=== PATIENT | female | born 1965 | race African-American/Black ===

== ENCOUNTER 2019-11-29 15:16 | Inpatient (IN) ==
[2019-11-29] MEDS ORDERED: ONDANSETRON 4 MG/2 ML VIAL IV STA (15:49)
[2019-11-29] MEDS ORDERED: SODIUM CHLORIDE 0.9% 1,000 ML IV STA (15:49)
[2019-11-29 16:46] LABS: Hematocrit 43.4 VOL% (35.7-47.0); Hemoglobin 14.3 GM/DL (12.0-16.0); Immature Granulocytes % 0.9 %; Immature Granulocytes Absolute 0.04 #; Lymphocytes # 0.8 10*3/uL (1.4-4.0); Lymphocytes % 16.4 % (21.3-54.2); Mean Corpuscular HGB Conc 32.9 GM/DL (32-36); Mean Corpuscular Volume 81.9 FL (87-102); Mean Platelet Volume 11.4 FL (9.6-12.0); Neutrophils % 77.7 % (38.7-73.9); Platelet Count 186 T/CUMM (130-400); Red Cell Distribution Width 12.6 % (9.3-17.3); White Blood Count 4.6 T/CUMM (4-12)
[2019-11-29 17:07] LABS: Albumin 3.5 G/DL (3.4-5.0); Bilirubin,Total 0.4 MG/DL (0.2-1.0); Calcium 8.7 MG/DL (8.5-10.1); Osmolality,Calculated 274.8 MOS/KG (273-304); Total Protein 7.9 G/DL (6.4-8.3)
[2019-11-29 17:39] LABS: Ferritin 256.5 ng/ml (8-252)
[2019-11-29] MEDS ORDERED: DEXTROSE 10% 250 ML BAG IV PRN (19:05)
[2019-11-29] MEDS ORDERED: ONDANSETRON 4 MG/2 ML VIAL IV PRN (19:05)
[2019-11-29] MEDS ORDERED: ZALEPLON 5 MG CAPSULE PO PRN (19:05)
[2019-11-29] MEDS ORDERED: GLUCAGON 1 MG VIAL IM PRN (19:05)
[2019-11-29] MEDS ORDERED: AZITHROMYCIN 250 MG TABLET PO ONE (19:11)
[2019-11-29] MEDS: SODIUM CHLORIDE 0.9% 1,000 ML IV SCH (21:40)
[2019-11-29] MEDS: INSULIN REGULAR 100 UNIT/ML SUBCUT SCH (21:51)
[2019-11-29] MEDS: FAMOTIDINE 20 MG TABLET PO SCH (21:55)
[2019-11-29] MEDS: ZINC SULFATE 220 MG CAPSULE PO SCH (21:55)
[2019-11-29] MEDS: ACETAMINOPHEN 325 MG TABLET PO PRN (22:05)
[2019-11-29] MEDS: GABAPENTIN 300 MG CAPSULE PO SCH (22:40)
[2019-11-29] MEDS: AMITRIPTYLINE 25 MG TABLET PO SCH (22:40)
[2019-11-29] MEDS: ENOXAPARIN 40 MG/0.4 ML SYRINGE SUBCUT SCH (22:40)
[2019-11-30 05:21] LABS: Basophils % 0.3 % (0.0-0.8); Hemoglobin 12.7 GM/DL (12.0-16.0); Immature Granulocytes % 1.1 %; Immature Granulocytes Absolute 0.04 #; Lymphocytes # 0.9 10*3/uL (1.4-4.0); Lymphocytes % 25.3 % (21.3-54.2); Mean Corpuscular HGB Conc 33.4 GM/DL (32-36); Mean Corpuscular Volume 81.7 FL (87-102); Mean Platelet Volume 11.8 FL (9.6-12.0); Monocytes % 7.1 % (1.7-12.7); Neutrophils % 66.2 % (38.7-73.9); Platelet Count 171 T/CUMM (130-400); Red Blood Count 4.65 MC/CUMM (3.8-5.5); Red Cell Distribution Width 12.6 % (9.3-17.3); White Blood Count 3.7 T/CUMM (4-12)
[2019-11-30 05:40] LABS: Albumin 2.8 G/DL (3.4-5.0); Bilirubin,Total 0.5 MG/DL (0.2-1.0); Osmolality,Calculated 276.7 MOS/KG (273-304); Total Protein 6.5 G/DL (6.4-8.3)
[2019-11-30 06:03] LABS: Apearance,Urine CLEAR (Clear); Bilirubin,Urine Negative (Negative); Blood, Urine Negative (Negative); Glucose,Urine (UA) Negative (Negative); Ketones,Urine Negative (Negative); Nitrite,Urine Negative (Negative); Protein,Urine Negative; RBC,Urine <1 /HPF (0-4); Squamous Epithelial Cell,Urine Occasional /HPF (0-10); Urine Color Yellow (Yellow); Urine Specific Gravity 1.009 (1.001-1.035); Urine Urobilinogen < 2.0 EU/DL (0.2-1.0)
[2019-11-30] MEDS ORDERED: POTASSIUM CHLORIDE 20 MEQ TABLET PO PRN (07:08)
[2019-11-30] MEDS: INSULIN REGULAR 100 UNIT/ML SUBCUT SCH ×4 (08:57→20:00)
[2019-11-30] MEDS ORDERED: PANTOPRAZOLE 40 MG TABLET PO SCH (09:00)
[2019-11-30] MEDS: ACETAMINOPHEN 325 MG TABLET PO PRN ×2 (10:20→20:00)
[2019-11-30] MEDS: GABAPENTIN 300 MG CAPSULE PO SCH ×2 (10:20→20:00)
[2019-11-30] MEDS: FAMOTIDINE 20 MG TABLET PO SCH ×2 (10:20→20:00)
[2019-11-30] MEDS: AZITHROMYCIN 250 MG TABLET PO SCH (10:21)
[2019-11-30] MEDS: SODIUM CHLORIDE 0.9% 1,000 ML IV SCH (10:21)
[2019-11-30] MEDS: HYDROXYCHLOROQUINE 200 MG TABLET PO SCH ×4 (10:22→20:00)
[2019-11-30] MEDS ORDERED: POTASSIUM CHLORIDE 20 MEQ TABLET PO ONE (15:00)
[2019-11-30] MEDS: AMITRIPTYLINE 25 MG TABLET PO SCH (20:00)
[2019-11-30] MEDS: ENOXAPARIN 40 MG/0.4 ML SYRINGE SUBCUT SCH (20:00)
[2019-11-30] MEDS ORDERED: HYDROXYCHLOROQUINE 200 MG TABLET PO SCH (21:00)
[2019-12-01] MEDS: SODIUM CHLORIDE 0.9% 1,000 ML IV SCH ×2 (00:03→13:55)
[2019-12-01 08:35] LABS: Basophils % 0.2 % (0.0-0.8); Hematocrit 37.3 VOL% (35.7-47.0); Hemoglobin 11.9 GM/DL (12.0-16.0); Immature Granulocytes % 2.4 %; Immature Granulocytes Absolute 0.11 #; Lymphocytes # 0.9 10*3/uL (1.4-4.0); Lymphocytes % 19.1 % (21.3-54.2); Mean Corpuscular HGB Conc 31.9 GM/DL (32-36); Mean Corpuscular Volume 84.2 FL (87-102); Mean Platelet Volume 10.6 FL (9.6-12.0); Monocytes % 6.1 % (1.7-12.7); Neutrophils % 72.2 % (38.7-73.9); Platelet Count 192 T/CUMM (130-400); Red Blood Count 4.43 MC/CUMM (3.8-5.5); Red Cell Distribution Width 12.8 % (9.3-17.3); White Blood Count 4.6 T/CUMM (4-12)
[2019-12-01 08:53] LABS: Calcium 7.6 MG/DL (8.5-10.1); Osmolality,Calculated 277.1 MOS/KG (273-304)
[2019-12-01] MEDS: HYDROXYCHLOROQUINE 200 MG TABLET PO SCH ×2 (09:48→21:21)
[2019-12-01] MEDS: ZINC SULFATE 220 MG CAPSULE PO SCH (09:48)
[2019-12-01] MEDS: FAMOTIDINE 20 MG TABLET PO SCH ×2 (09:48→21:21)
[2019-12-01] MEDS: AZITHROMYCIN 250 MG TABLET PO SCH (09:49)
[2019-12-01] MEDS: INSULIN REGULAR 100 UNIT/ML SUBCUT SCH ×4 (09:49→21:20)
[2019-12-01] MEDS: GABAPENTIN 300 MG CAPSULE PO SCH ×2 (09:49→21:21)
[2019-12-01] MEDS: ENOXAPARIN 40 MG/0.4 ML SYRINGE SUBCUT SCH (21:20)
[2019-12-01] MEDS: AMITRIPTYLINE 25 MG TABLET PO SCH (21:20)
[2019-12-02] MEDS: SODIUM CHLORIDE 0.9% 1,000 ML IV SCH ×2 (03:20→17:30)
[2019-12-02 05:51] LABS: Basophils % 0.7 % (0.0-0.8); Eosinophils % 0.5 % (0.00-10.9); Hemoglobin 12.3 GM/DL (12.0-16.0); Immature Granulocytes % 4.8 %; Immature Granulocytes Absolute 0.21 #; Lymphocytes # 1.1 10*3/uL (1.4-4.0); Lymphocytes % 24.1 % (21.3-54.2); Mean Corpuscular HGB Conc 33.2 GM/DL (32-36); Mean Corpuscular Volume 81.1 FL (87-102); Mean Platelet Volume 10.7 FL (9.6-12.0); Monocytes % 10.7 % (1.7-12.7); Neutrophils % 59.2 % (38.7-73.9); Platelet Count 231 T/CUMM (130-400); Red Blood Count 4.56 MC/CUMM (3.8-5.5); Red Cell Distribution Width 12.6 % (9.3-17.3); White Blood Count 4.4 T/CUMM (4-12)
[2019-12-02 06:21] LABS: Calcium 8.1 MG/DL (8.5-10.1); Osmolality,Calculated 276.8 MOS/KG (273-304)
[2019-12-02 06:30] LABS: Anisocytosis Slight; Band Neutrophils 2 % (0-10); Lymphocytes 30 % (20-55); Macrocytosis 1+; Platelet Estimate Normal; Segmented Neutrophils 61 % (50-85); Total Cells Counted 100
[2019-12-02] MEDS ORDERED: HYDROCORTISONE 2.5% RECTAL CREAM 30 GM TUBE TOP PRN (10:20)
[2019-12-02] MEDS: INSULIN REGULAR 100 UNIT/ML SUBCUT SCH ×4 (11:10→21:19)
[2019-12-02] MEDS: GABAPENTIN 300 MG CAPSULE PO SCH ×2 (11:11→21:19)
[2019-12-02] MEDS: AZITHROMYCIN 250 MG TABLET PO SCH (11:11)
[2019-12-02] MEDS: FAMOTIDINE 20 MG TABLET PO SCH ×2 (11:11→20:41)
[2019-12-02] MEDS: INSULIN GLARGINE 100 UNIT/ML SUBCUT SCH (16:58)
[2019-12-02] MEDS: ACETAMINOPHEN 325 MG TABLET PO PRN (16:59)
[2019-12-02] MEDS: AMITRIPTYLINE 25 MG TABLET PO SCH (20:41)
[2019-12-02] MEDS: ENOXAPARIN 40 MG/0.4 ML SYRINGE SUBCUT SCH (21:19)
[2019-12-03] MEDS: SODIUM CHLORIDE 0.9% 1,000 ML IV SCH ×2 (06:18→18:08)
[2019-12-03] MEDS: GABAPENTIN 300 MG CAPSULE PO SCH ×2 (08:25→20:18)
[2019-12-03] MEDS: FAMOTIDINE 20 MG TABLET PO SCH ×2 (08:26→20:18)
[2019-12-03] MEDS: AZITHROMYCIN 250 MG TABLET PO SCH (08:26)
[2019-12-03] MEDS: ZINC SULFATE 220 MG CAPSULE PO SCH (08:27)
[2019-12-03] MEDS: ACETAMINOPHEN 325 MG TABLET PO PRN ×3 (08:49→21:21)
[2019-12-03] MEDS: HYDROXYCHLOROQUINE 200 MG TABLET PO SCH ×2 (09:23→20:18)
[2019-12-03] MEDS: INSULIN REGULAR 100 UNIT/ML SUBCUT SCH ×4 (10:06→20:39)
[2019-12-03] MEDS: AMITRIPTYLINE 25 MG TABLET PO SCH (20:19)
[2019-12-03] MEDS: ENOXAPARIN 40 MG/0.4 ML SYRINGE SUBCUT SCH (20:19)
[2019-12-03] MEDS: INSULIN GLARGINE 100 UNIT/ML SUBCUT SCH (20:39)
[2019-12-04 05:12] LABS: Basophils % 0.6 % (0.0-0.8); Eosinophils # 0.1 10*3/uL (0.0-0.87); Eosinophils % 1.7 % (0.00-10.9); Hematocrit 35.9 VOL% (35.7-47.0); Hemoglobin 12.1 GM/DL (12.0-16.0); Immature Granulocytes % 7.3 %; Immature Granulocytes Absolute 0.34 #; Lymphocytes # 1.1 10*3/uL (1.4-4.0); Lymphocytes % 22.9 % (21.3-54.2); Mean Corpuscular HGB Conc 33.7 GM/DL (32-36); Mean Corpuscular Volume 84.7 FL (87-102); Mean Platelet Volume 10.6 FL (9.6-12.0); Monocytes % 14.5 % (1.7-12.7); Platelet Count 339 T/CUMM (130-400); Red Blood Count 4.24 MC/CUMM (3.8-5.5); Red Cell Distribution Width 12.6 % (9.3-17.3); White Blood Count 4.6 T/CUMM (4-12)
[2019-12-04 06:17] LABS: Band Neutrophils 3 % (0-10); Eosinophils 2 % (0-10); Lymphocytes 30 % (20-55); Segmented Neutrophils 54 % (50-85)
[2019-12-04 06:19] LABS: Platelet Estimate Normal; Total Cells Counted 100
[2019-12-04] MEDS: FAMOTIDINE 20 MG TABLET PO SCH (08:00)
[2019-12-04] MEDS: GABAPENTIN 300 MG CAPSULE PO SCH (08:00)
[2019-12-04] MEDS: HYDROXYCHLOROQUINE 200 MG TABLET PO SCH (08:00)
[2019-12-04] MEDS: INSULIN REGULAR 100 UNIT/ML SUBCUT SCH ×2 (08:24→12:00)
[2019-12-04] MEDS: SODIUM CHLORIDE 0.9% 1,000 ML IV SCH (08:25)
[2019-12-04] MEDS: ACETAMINOPHEN 325 MG TABLET PO PRN (08:48)
[2019-12-04 15:54] VITALS: BP 159/91
== END 2019-12-04 13:30 | disposition home or self-care (01) | DRG 178 ==
LOC: N.ED 15:16 → SUATTDRO 19:05 → N.EDINP 19:05 → SUPCPDRO 19:05 → N.2W 19:56
PROVIDERS: ADMIT Family Medicine; ATTEND Internal Medicine